=== PATIENT | female | born 1930 | race Caucasian/White ===

== ENCOUNTER 2018-11-17 20:37 | Observation (INO) | payer OTHER ==
[2018-11-17] MEDS ORDERED: SODIUM CHLORIDE 500 ML IV STA (20:55)
[2018-11-17 21:49] LABS: BASO % 0.6 % (0-2.0); HEMATOCRIT 37.9 % (32.4-45.2); HEMOGLOBIN 12.8 GM/dL (10.7-15.3); LYMPH % 31.2 % (8-40); MCH 32.5 pg (25.7-33.7); MCHC 33.6 g/dl (32.0-36.0); MEAN CELL VOLUME 96.7 fl (80-96); MEAN PLT VOLUME 8.4 fl (7.5-11.1); MONO % 7.9 % (3.8-10.2); NEUT % 57.3 % (42.8-82.8); PLATELET COUNT 223 K/MM3 (134-434); RBC 3.92 M/mm3 (3.60-5.2); WHITE BLOOD COUNT 6.4 K/mm3 (4.0-10.0)
--- NOTE | 2018-11-17 21:50 | PDOC ---
Documentation entered by Linda Mei SCRIBE, acting as scribe for Christiano Chacko MD. Christiano Chacko MD: This documentation has been prepared by the Sigifredo jones Daisy, SCRIBE, under my direction and personally reviewed by me in its entirety. I confirm that the documentation accurately reflects all work, treatment, procedures, and medical decision making performed by me. Attending Attestation - Resident Resident Name: Nj Gregory - ED Attending Attestation I have performed the following: I have examined & evaluated the patient, The case was reviewed & discussed with the resident, I agree w/resident's findings & plan, Exceptions are as noted - HPI HPI: 11/17/18 20:56 The patient is a 88YOF with a PMH of Alzhiemer's disease and HLD who presents to the ED for syncopal episode. Patient reports she was walking in a store when she began to experience lightheadedness. Pt states she sat down and lost consciousness for a couple minutes. This was witnessed by family, who states pt slumped over in the chair but did not fall to the ground. Pt awoke shortly after and returned to her baseline. Pt denies any CP/SOB/palpitations. Allergies: NKDA - Physicial Exam PE: 11/17/18 21:50 "GENERAL: Awake, alert, and fully oriented, in no acute distress. HEAD: No signs of trauma EYES: PERRLA, EOMI, sclera anicteric, conjunctiva clear ENT: Auricles normal inspection, hearing grossly normal, nares patent, oropharynx clear without exudates. Moist mucosa NECK: Nontender, no stepoffs, Normal ROM, supple, no lymphadenopathy, JVD, or masses LUNGS: Breath sounds equal, clear to auscultation bilaterally. No wheezes, and no crackles HEART: Regular rate and rhythm, normal S1 and S2, no murmurs, rubs or gallops ABDOMEN: Soft, nontender, normoactive bowel sounds. No guarding, no rebound. No masses EXTREMITIES: Normal range of motion, no edema. No clubbing or cyanosis. No cords, erythema, or tenderness NEUROLOGICAL: Cranial nerves II through XII intact. 5/5 strength and sensation in all extremities, Normal speech, normal gait, normal cerebellar function SKIN: Warm, Dry, normal turgor, no rashes or lesions noted. - Medical Decision Making 11/17/18 21:50 88 F with syncopal episode. - Labs, trop - EKG - Tele monitor
[2018-11-17 22:05] LABS: INR 1.02 (0.83-1.09)
[2018-11-17 22:21] LABS: ALBUMIN 3.4 g/dl (3.4-5.0); ALK PHOS 102 U/L (45-117); ANION GAP 4 MMOL/L (8-16); BILIRUBIN,TOTAL 0.2 mg/dL (0.2-1); BLOOD UREA NITROGEN 18 mg/dL (7-18); CALCIUM 8.1 mg/dL (8.5-10.1); CHLORIDE 107 mmol/L (98-107); CO2 31 mmol/L (21-32); CREATININE 0.7 mg/dL (0.55-1.3); GLUCOSE,RANDOM 154 mg/dL (74-106); MAGNESIUM 2.3 mg/dL (1.8-2.4); POTASSIUM 4.3 mmol/L (3.5-5.1); SGOT/AST 15 U/L (15-37); SGPT/ALT 19 U/L (13-61); SODIUM 142 mmol/L (136-145); TOT PROT 6.5 g/dl (6.4-8.2)
--- NOTE | 2018-11-17 23:02 | PDOC ---
History of Present Illness - General Chief Complaint: Syncope/Near Syncope Stated Complaint: NEAR SYNCOPE Time Seen by Provider: 11/17/18 20:44 History Source: Family Exam Limitations: Dementia - History of Present Illness Initial Comments: 11/17/18 22:52 Patient is an 88F with history of dementia, HTN here today complaining of syncope. Patient's family state that she was shopping when she said that she started to feel dizzy, sat down, and then briefly lost consciousness. No post ictal period or shaking. EMS reports that the patient was conscious when they arrived with normal vitals, reassuring ekg, and fingerstick of 80. Patient is at baseline mental status per family; does not know day, year or remember basic things at baseline. Family deny fevers, chills, nausea, vomiting. Patient states she has no pain and feels mostly fine. Past History - Past Medical History Allergies/Adverse Reactions: Allergies Allergy/AdvReac Type Severity Reaction Status Date / Time No Known Allergies Allergy Verified 11/17/18 20:59 Home Medications: Ambulatory Orders Amlodipine Besylate [Norvasc -] 5 mg PO DAILY 01/01/16 Benazepril HCl 10 mg PO DAILY 01/01/16 Calcium 250Mg/Vit-D 125 Units [Oscal 250 mg+D -] 1 combo PO BID 01/01/16 Citalopram Hydrobromide [Celexa -] 20 mg PO DAILY 01/01/16 Multivitamin [Poly-Vitamin] 1 each PO DAILY 01/01/16 Pravastatin Sodium [Pravachol (Nf)] 20 mg PO DAILY 01/01/16 Quetiapine Fumarate [Seroquel -] 25 mg PO HS 01/01/16 Dementia: Yes Disorders: Yes (gerd) HTN: Yes Hypercholesterolemia: Yes Psychiatric Problems: Yes (depression) - Suicide/Smoking/Psychosocial Hx Smoking History: Never smoked Have you smoked in the past 12 months: No Information on smoking cessation initiated: No Hx Alcohol Use: No Drug/Substance Use Hx: No Substance Use Type: None Review of Systems - Review of Systems Able to Perform ROS?: No (2/2 dementia) *Physical Exam - Vital Signs Last Vital Signs Temp Pulse Resp BP Pulse Ox 98.1 F 70 16 113/68 97 11/17/18 20:37 11/17/18 20:37 11/17/18 20:37 11/17/18 20:37 11/17/18 20:37 - Physical Exam Comments: 11/17/18 23:02 GENERAL: Awake, alert, and oriented to self, but not time or place, in no acute distress HEAD: No signs of trauma, normocephalic, atraumatic EYES: PERRLA, EOMI, sclera anicteric, conjunctiva clear ENT: Auricles normal inspection, hearing grossly normal, nares patent, oropharynx clear without exudates. Moist mucosa NECK: Normal ROM, supple, no lymphadenopathy, JVD, or masses LUNGS: No distress, speaks full sentences, clear to auscultation bilaterally HEART: Regular rate and rhythm, normal S1 and S2, no murmurs, rubs or gallops, peripheral pulses normal and equal bilaterally. ABDOMEN: Soft, nontender, normoactive bowel sounds. No guarding, no rebound. No masses EXTREMITIES: Normal inspection, Normal range of motion, no edema. No clubbing or cyanosis. NEUROLOGICAL: Cranial nerves II through XII grossly intact. Normal speech, no focal sensorimotor deficits SKIN: Warm, Dry, normal turgor, no rashes or lesions noted. ED Treatment Course - LABORATORY CBC & Chemistry Diagram: 11/17/18 21:37 11/17/18 21:37 - ADDITIONAL ORDERS Additional order review: Laboratory Results 11/17/18 11/17/18 21:37 21:37 PT with INR 12.00 INR 1.02 Sodium 142 Potassium 4.3 Chloride 107 Carbon Dioxide 31 Anion Gap 4 L BUN 18 Creatinine 0.7 Est GFR (CKD-EPI)AfAm 90.29 Est GFR (CKD-EPI)NonAf 77.90 Random Glucose 154 H Calcium 8.1 L Magnesium 2.3 Total Bilirubin 0.2 AST 15 ALT 19 Alkaline Phosphatase 102 Creatine Kinase 32 Troponin I < 0.02 Total Protein 6.5 Albumin 3.4 11/17/18 21:37 RBC 3.92 MCV 96.7 H MCHC 33.6 RDW 13.0 MPV 8.4 Neutrophils % 57.3 Lymphocytes % 31.2 Monocytes % 7.9 Eosinophils % 3.0 D Basophils % 0.6 - RADIOLOGY Radiology Studies Ordered: Category Date Time Status CHEST X-RAY PORTABLE* [RAD] Stat Radiology 11/17/18 20:55 Ordered - Medications Given in the ED: ED Medications Discontinued Medications Generic Name Dose Route Start Last Admin Trade Name Brianna PRN Reason Stop Dose Admin Sodium Chloride 500 mls @ 500 mls/hr 11/17/18 20:55 11/17/18 21:47 Normal Saline - IV 11/17/18 21:54 500 mls/hr ASDIR STA Administration Medical Decision Making - Medical Decision Making 11/17/18 23:03 Patient is 88F with history of HTN and dementia here today with syncope. Vitals normal and stable. DDx includes, but is not limited to: arrhythmia, uti, dehydration, anemia. Will do cardiac workup, likely obs. CBC normal. CMP reassuring. Trop normal. EKG shows NSR with rate of 71. No st elevations/depressions. Normal axis. Normal intervals. Diffuse t wave flattening. CXR clear. Hospitalist paged. 11/17/18 23:[address] Rivera. Will obs. *DC/Admit/Observation/Transfer Diagnosis at time of Disposition: Syncope - Discharge Dispostion Condition at time of disposition: Stable Decision to Admit order: Yes - Referrals - Patient Instructions - Post Discharge Activity
--- NOTE | 2018-11-18 00:03 | PN ---
Teaching Attending Note Name of Resident: Yoel Rivera ATTENDING PHYSICIAN STATEMENT I saw and evaluated the patient. I reviewed the resident's note and discussed the case with the resident. I agree with the resident's findings and plan as documented. SUBJECTIVE: Seen and examined; please refer to resident note for further historical information. Briefly, this is a 88 y/o female with a PMH as stated presenting for an episode of syncope; she is demented and a poor historian and thus we have obtained history from her family. She was at the mall today and she appeared lightheaded and lost consciousness for several moments. No fall, no recent trauma, no neurological deficits. This was attributed to medication in the past (seroquel) but she had not taken the medicine yet today. She was brought in by family due to the relative severity of this episode and they did provide history. At this time the patient has no complaints and denies any pain. Mentation at baseline per family. Observing on tele overnight on the medicine service. Was hydrated prior to checking orthstatics which are pending 10 sys ROS couldn't be reliably obtained due to underlying dementia PMH, PSH, FH, SH reviewed Home Medications Medication Instructions Recorded Amlodipine Besylate [Norvasc -] 5 mg PO DAILY 01/01/16 Benazepril HCl 10 mg PO DAILY 01/01/16 Calcium 250Mg/Vit-D 125 Units 1 combo PO BID 01/01/16 [Oscal 250 mg+D -] Citalopram Hydrobromide [Celexa -] 20 mg PO DAILY 01/01/16 Multivitamin [Poly-Vitamin] 1 each PO DAILY 01/01/16 Pravastatin Sodium [Pravachol (Nf)] 20 mg PO DAILY 01/01/16 Quetiapine Fumarate [Seroquel -] 25 mg PO HS 01/01/16 OBJECTIVE: VS, labs, imaging reviewed NAD, AAO, Resting comfortably in bed NC AT EOMI PERRLA RRR s1/w no mgr Lungs CTAB, w/ sym exp NT ND +BS CN2-12 wnl, no fnd, moves all 4 extremities Normal mood, forgetful but following commands, etc. EKG reviewed; no high degree AVB, new acute ischemic changes, etc. Echo pending ASSESSMENT AND PLAN: Patient presents with brief syncopal episode; she has had these in the past with her seroquel but had not taken it today and this was more severe than her normal symptoms. 1) Syncope -Monitor on telemetry; neuro checks, seizure precautions. Checking echo. -Ddx with cardiogenic vs. neurogenic causes. No vertigo sx, no fnds. Checking orthostatics. -Hold seroquel tonight -If no discernable cause can consider further neuro/vascular imaging urgent vs. nonurgent -Checking TSH, B12, RPR, Thiamine 2) Dementia -Hold seroquel; check QTc before restarting 3) HLD -Continue statin 4) HTN -Monitor; continue amlodipine, benzapril 5) Hyperglycemia -Check A1c but would not lorenz to treatment in her age group
--- NOTE | 2018-11-18 00:09 | HP ---
CHIEF COMPLAINT: syncope PCP: HISTORY OF PRESENT ILLNESS: 88 yo female with PMH HTN, HLD, GERD, Alzheimers DM admitted to the hospital following an episode of syncope while shopping today. Pt is severely demented and unable to give a hx however family is present at bedside. Family states she felt dizzy, sat down and then completely lost consciousness. As per family "she came back" after a few seconds. They deny any confusion or incontinence more than her baseline however at baseline she does have urinary incontinence very often at baseline and is also very confused at baseline. Family denies any fevers, chills, cough, nausea, vomiting, diarrhea. They do endorse that she ate and drank less than her normal amount this afternoon. ER course was notable for: (1) CXR without any concerning findings (2) Labs mostly wnl, glucose 154 (3) Recent Travel: none PAST MEDICAL HISTORY: as above PAST SURGICAL HISTORY: appendectomy a few years ago as per family. Social History: Smoking: none Alcohol: none Drugs: none Family History: Allergies No Known Allergies Allergy (Verified 11/17/18 20:59) HOME MEDICATIONS: Home Medications Medication Instructions Recorded Amlodipine Besylate [Norvasc -] 5 mg PO DAILY 01/01/16 Benazepril HCl 10 mg PO DAILY 01/01/16 Calcium 250Mg/Vit-D 125 Units 1 combo PO BID 01/01/16 [Oscal 250 mg+D -] Citalopram Hydrobromide [Celexa -] 20 mg PO DAILY 01/01/16 Multivitamin [Poly-Vitamin] 1 each PO DAILY 01/01/16 Pravastatin Sodium [Pravachol (Nf)] 20 mg PO DAILY 01/01/16 Quetiapine Fumarate [Seroquel -] 25 mg PO HS 01/01/16 REVIEW OF SYSTEMS CONSTITUTIONAL: Absent: fever, chills, diaphoresis, generalized weakness, malaise, loss of appetite, weight change HEENT: Absent: rhinorrhea, nasal congestion, throat pain, throat swelling, difficulty swallowing, mouth swelling, ear pain, eye pain, visual changes CARDIOVASCULAR: syncope Absent: chest pain, , palpitations, irregular heart rate, lightheadedness, peripheral edema RESPIRATORY: Absent: cough, shortness of breath, dyspnea with exertion, orthopnea, wheezing, stridor, hemoptysis GASTROINTESTINAL: Absent: abdominal pain, abdominal distension, nausea, vomiting, diarrhea, constipation, melena, hematochezia GENITOURINARY: Absent: dysuria, frequency, urgency, hesitancy, hematuria, flank pain, genital pain MUSCULOSKELETAL: Absent: myalgia, arthralgia, joint swelling, back pain, neck pain SKIN: Absent: rash, itching, pallor HEMATOLOGIC/IMMUNOLOGIC: Absent: easy bleeding, easy bruising, lymphadenopathy, frequent infections ENDOCRINE: Absent: unexplained weight gain, unexplained weight loss, heat intolerance, cold intolerance NEUROLOGIC: Absent: headache, focal weakness or paresthesias, dizziness, unsteady gait, seizure, mental status changes, bladder or bowel incontinence PSYCHIATRIC: Absent: anxiety, depression, suicidal or homicidal ideation, hallucinations. PHYSICAL EXAMINATION Vital Signs - 24 hr 11/17/18 20:37 Temperature 98.1 F Pulse Rate 70 Respiratory 16 Rate Blood Pressure 113/68 O2 Sat by Pulse 97 Oximetry (%) GEN: Alert, oriented to self only, no acute distress HEENT: Dry mucus membranes, PERRL, EOMI NEURO: CN II-XII in tact, 5/5 muscle strength, no sensation deficits HEART: RRR, no murmurs noted LUNGS: CTA b/l, no wheezes noted ABDOMEN: Soft, nontender, normoactive bowel sounds EXTREMITIES: no peripheral edema or calf tenderness Laboratory Results - last 24 hr 11/17/18 11/17/18 11/17/18 21:37 21:37 21:37 WBC 6.4 RBC 3.92 Hgb 12.8 Hct 37.9 MCV 96.7 H MCH 32.5 MCHC 33.6 RDW 13.0 Plt Count 223 MPV 8.4 Absolute Neuts (auto) 3.7 Neutrophils % 57.3 Lymphocytes % 31.2 Monocytes % 7.9 Eosinophils % 3.0 D Basophils % 0.6 Nucleated RBC % 0 PT with INR 12.00 INR 1.02 Sodium 142 Potassium 4.3 Chloride 107 Carbon Dioxide 31 Anion Gap 4 L BUN 18 Creatinine 0.7 Est GFR (CKD-EPI)AfAm 90.29 Est GFR (CKD-EPI)NonAf 77.90 Random Glucose 154 H Calcium 8.1 L Magnesium 2.3 Total Bilirubin 0.2 AST 15 ALT 19 Alkaline Phosphatase 102 Creatine Kinase 32 Troponin I < 0.02 Total Protein 6.5 Albumin 3.4 ASSESSMENT/PLAN: 88 yo female with PMH HTN, HLD, GERD, Alzheimers DM admitted to the hospital following an episode of syncope while shopping today. Pt is severely demented and unable to give a hx however family is present at bedside. Syncope -Possibly orthostatic, however monitor on tele to r/o arrhythmia as family states this is somewhat different from previous syncopal episodes -Telemetry monitoring overnight -TSH -RPR -B6/B12 level -Hyperglycemia noted (153), A1c pending -ECHO Alzheimers -at baseline as per family present -Neuro Checks Q4 as patient unable to convey accurately how she is feeling HTN -Verify and continue home meds as tolerated -Norvasc 5 mg PO Daily -Benazapril 10 mg PO Daily HLD -Pravastatin 20 mg PO HS FEN -LR @ 42 cc/hr -monitor and replete -Na controlled diet DVT Prophylaxis -SCDs Disposition Telemetry Observation Visit type - Emergency Visit Emergency Visit: Yes ED Registration Date: 11/17/18 Care time: The patient presented to the Emergency Department on the above date and was hospitalized for further evaluation of their emergent condition. - New Patient This patient is new to me today: Yes Date on this admission: 11/18/18 - Critical Care Critical Care patient: No
[2018-11-18] MEDS ORDERED: LACTATED RINGERS SOLUTION 500 ML IV SCH (00:45)
[2018-11-18 02:35] VITALS: TEMP 98; BMI 19.3
[2018-11-18 06:00] VITALS: BP 149/85; PULSE 58
[2018-11-18 07:09] LABS: HEMATOCRIT 34.5 % (32.4-45.2); HEMOGLOBIN 11.6 GM/dL (10.7-15.3); MCH 32.2 pg (25.7-33.7); MCHC 33.7 g/dl (32.0-36.0); MEAN CELL VOLUME 95.7 fl (80-96); MEAN PLT VOLUME 8.5 fl (7.5-11.1); PLATELET COUNT 212 K/MM3 (134-434); RBC 3.61 M/mm3 (3.60-5.2); WHITE BLOOD COUNT 6.5 K/mm3 (4.0-10.0)
[2018-11-18 07:53] LABS: CALCIUM 8.3 mg/dL (8.5-10.1); CREATININE 0.5 mg/dL (0.55-1.3); MAGNESIUM 2.5 mg/dL (1.8-2.4); PHOSPHOROUS 3.2 mg/dL (2.5-4.9); POTASSIUM 3.7 mmol/L (3.5-5.1)
--- NOTE | 2018-11-18 10:33 | HOSP ---
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 mom felt dizzy for 5 min before the syncope, then became flaccid , she lowered her to floor, then she LOC and her muscles tightened up. she has occasional dizziness. demented, but can walk. she expressed she wa snot satisfied with service in hospital and wants to take her mom to another hospital. I explained to her the Dx: arhythmias, orthosattic hypotension, seizure, and explaned the risk of falls, head trauma, ICH, and . she understands and wants to sign AMA Physical Examination Vital Signs: Vital Signs Temperature 98 F 11/18/18 06:00 Pulse Rate 58 L 11/18/18 06:00 Respiratory Rate 18 11/18/18 06:00 Blood Pressure 149/85 11/18/18 06:00 O2 Sat by Pulse Oximetry (%) 95 11/18/18 01:28 Labs: CBC, BMP 11/18/18 05:35 11/18/18 05:35
--- NOTE | 2018-11-18 12:26 | EKG ---
Test Reason : Blood Pressure : / mmHG Vent. Rate : 071 BPM Atrial Rate : 071 BPM P-R Int : 150 ms QRS Dur : 080 ms QT Int : 388 ms P-R-T Axes : 045 041 050 degrees QTc Int : 421 ms SINUS RHYTHM WITH OCCASIONAL PREMATURE VENTRICULAR COMPLEXES NONSPECIFIC T WAVE ABNORMALITY ABNORMAL ECG WHEN COMPARED WITH ECG OF 01-JAN-2016 16:30, PREMATURE VENTRICULAR COMPLEXES ARE NOW PRESENT Confirmed by RADAMES STEVENSON MD ([id number]) on 11/18/2018 12:26:39 PM Referred By: Confirmed By:RADAMES STEVENSON MD
--- NOTE | 2018-11-19 13:22 | DS ---
Physical Exam: SUBJECTIVE: See progress note from 11/18/18 OBJECTIVE: PHYSICAL EXAM See progress note from 11/18/18 LABS HOSPITAL COURSE: Date of Admission:11/17/18 Date of Discharge: 11/19/18 HPI On Admission: 88 yo female with PMH HTN, HLD, GERD, Alzheimers DM admitted to the hospital following an episode of syncope while shopping today. Pt is severely demented and unable to give a hx however family is present at bedside. Family states she felt dizzy, sat down and then completely lost consciousness. As per family "she came back" after a few seconds. They deny any confusion or incontinence more than her baseline however at baseline she does have urinary incontinence very often at baseline and is also very confused at baseline. Family denies any fevers, chills, cough, nausea, vomiting, diarrhea. They do endorse that she ate and drank less than her normal amount this afternoon. Hospital course: Pt was monitored on telemetry overnight without any signs of abnormal arrhythmia. Pts daughter informed staff that she was unsatisfied with the care of her mother and requested to sign out AMA. Risks were discussed and pt left the hospital with apparent plans to go to another institution Minutes to complete discharge: 30 Discharge Summary Reason For Visit: SYNCOPE Condition: Stable - Instructions Disposition: AGAINST MEDICAL ADVICE - Home Medications Comprehensive Discharge Medication List: Ambulatory Orders Amlodipine Besylate [Norvasc -] 5 mg PO DAILY 01/01/16 Benazepril HCl 10 mg PO DAILY 01/01/16 Calcium 250Mg/Vit-D 125 Units [Oscal 250 mg+D -] 1 combo PO BID 01/01/16 Citalopram Hydrobromide [Celexa -] 20 mg PO DAILY 01/01/16 Multivitamin [Poly-Vitamin] 1 each PO DAILY 01/01/16 Pravastatin Sodium [Pravachol (Nf)] 20 mg PO DAILY 01/01/16 Quetiapine Fumarate [Seroquel -] 25 mg PO HS 01/01/16 This patient is new to me today: No Emergency Visit: Yes ED Registration Date: 11/17/18 Care time: The patient presented to the Emergency Department on the above date and was hospitalized for further evaluation of their emergent condition. Critical Care patient: No - Discharge Referral Referred to [facility] Med P.C.: No
== END 2018-11-18 12:18 | disposition left against medical advice (07) ==
LOC: JER 20:37 → JERBED 23:22 → J4W 11-18 01:58
PROVIDERS: ADMIT Internal Medicine; ATTEND Internal Medicine
PROC: 3E0337Z Introduction of Electrolytic and Water Balance Substance into Peripheral Vein, Percutaneous Approach (ICD-10-PCS; principal; 2018-11-17)
DX: R55 Syncope and collapse (principal); I10 Essential (primary) hypertension; E78.5 Hyperlipidemia, unspecified; G30.9 Alzheimer's disease, unspecified; F02.80 Dementia in other diseases classified elsewhere, unspecified severity, without behavioral disturbance, psychotic disturbance, mood disturbance, and anxiety; R73.9 Hyperglycemia, unspecified; K21.9 Gastro-esophageal reflux disease without esophagitis
CPT/HCPCS: 36415; 71045-TC-FY; 80048; 80053; 82550; 82607; 83036; 83735; 84100; 84207; 84443; 84484; 85025; 85027; 85610; 86593; 93005; 93010; 96360; 99284-25; G0378